=== PATIENT | male | born 1975 | race American Indian/Alaskan Native ===

== ENCOUNTER 2017-12-05 17:10 | Emergency (ER) | payer MEDICAID ==
[2017-12-05 18:37] VITALS: TEMP 97.6
--- NOTE | 2017-12-05 18:41 | ED PDOC ---
Arrival/HPI - General Chief Complaint: Headache Time Seen by Provider: 12/05/17 18:32 Historian: Patient - History of Present Illness Narrative History of Present Illness (Text): 12/05/17 18:38 Patient is a 42 yo male, past medical history of hypertension, currently not taking meds, presents to the Emergency Department complaining of GRADUAL onset of headache "one week ago" which is predominantly left sided and has been interm ittent for past week. Denies fever. Denies trauma. States he feels "slower" and notes associated erectile dysfunction. Patient DENIES any new medications. Patient denies neck pain. Denies dental pain. Denies facial pain or swelling. Denies cough or fevers or chills. States that headache appears better with exertion and is more noticeable "when I'm relaxed and resting". Patient denies any nasal congestion or sore throat. Past Medical History - Infectious Disease Hx of Infectious Diseases: None - Cardiac Hx Cardiac Disorders: No - Pulmonary Hx Respiratory Disorders: No - Psychiatric Hx Substance Use: Yes (weed) - Anesthesia Hx Anesthesia: No Family/Social History Family/Social History: Unknown Family HX Smoking Status: Never Smoked Hx Alcohol Use: Yes Hx Substance Use: Yes (weed) Allergies/Home Meds Allergies/Adverse Reactions: Allergies No Known Allergies Allergy (Verified 01/16/17 18:59) Home Medications: Home Meds Medication Instructions Recorded Confirmed No Known Home Med 01/16/17 01/16/17 Review of Systems - Review of Systems Constitutional: Fatigue. absent: Fevers Eyes: Vision Changes (reports difficulty reading, denies loss of vision, denies double vision) ENT: Other (occasional left ear pain). absent: Hearing Changes Respiratory: absent: SOB, Cough Cardiovascular: absent: Chest Pain, Palpitations Gastrointestinal: absent: Abdominal Pain Genitourinary Male: Other (reports difficulty sustaining an erection since headache). absent: Dysuria, Frequency Musculoskeletal: absent: Back Pain, Neck Pain Neurological: Headache, Gait Changes. absent: Speech Changes, Facial Droop, Seizure Endocrine: absent: Polyuria Hemo/Lymphatic: absent: Easy Bleeding Psychiatric: absent: Depression, Suicidal Ideation Physical Exam - Physical Exam Narrative Physical Exam (Text): 12/05/17 18:32 Head: Atraumatic. Normocephalic. Eyes: PERRL. EOMI. Conjunctivae are not pale. ENT: Mucous membranes are moist and intact. Oropharynx is clear and symmetric. Neck: Supple. Full ROM. No JVD. No lymphadenopathy. Cardiovascular: Regular rate. Regular rhythm. No murmurs, rubs, or gallops. Distal pulses are 2+ and symmetric. Pulmonary/Chest: No evidence of respiratory distress. Clear to auscultation bilaterally. No wheezing, rales or rhonchi. Abdominal: Soft and non-distended. There is no tenderness. No rebound, guarding, or rigidity. No organomegaly. Good bowel sounds. Back: No CVA tenderness. Extremities: No edema. No cyanosis. No clubbing. Full range of motion in all extremities. No calf tenderness. Skin: Skin is warm and dry. No petechiae. No purpura. Neurological: Alert, awake, and oriented to person, place, time, and situation. Normal speech. Psychiatric: Good eye contact. Normal interaction, affect, and behavior. Vital Signs Reviewed: Yes Vital Signs Temp Pulse Resp BP Pulse Ox 12/05/17 18:00 97.6 F 86 17 128/100 H 98 12/05/17 17:32 98.3 F 74 18 148/91 H 99 Temperature: Afebrile Blood Pressure: Hypertensive Appearance: Positive for: Non-Toxic Pain Distress: Mild Mental Status: Positive for: Alert and Oriented X 3 Medical Decision Making ED Course and Treatment: 12/05/17 20:43 Patient currently with no fever, no history of trauma. He has no facial droop or cranial nerve deficits. Currently visual acuity and wan intact. Steady gait. Denies new medications. Not "thunderclap" headache, not worse of life. Blood pressure improved. Given intermittent persistent headache, ct ordered. CT pending at this time. Patient updated at 2041. He is laying comfortably on stretcher. 12/05/17 21:24 CT pending. Patient endorsed to Dr. Leung for follow-up of ct, re-exam, dispo. - RAD Interpretation Radiology Orders: 12/05/17 18:32 HEAD W/O CONTRAST [CT] Stat Disposition/Present on Arrival - Present on Arrival Any Indicators Present on Arrival: No History of DVT/PE: No History of Uncontrolled Diabetes: No Urinary Catheter: No History of Decub. Ulcer: No History Surgical Site Infection Following: None - Disposition Have Diagnosis and Disposition been Completed?: Yes Diagnosis: Headache Disposition Time: 21:25 Patient Plan: Observation Patient Problems: Current Active Problems Problem Status Onset Headache Acute Condition: FAIR Forms: [employer] (Maltese)
[2017-12-05 18:59] LABS: BASO # 0.03 K/mm3 (0.0-2.0); BASO % 0.6 % (0.0-3.0); EOS # 0.2 (0.0-0.7); EOS % 3.6 % (1.5-5.0); GRAN # 2.51 (1.4-6.5); GRAN % 52.7 % (50.0-68.0); LYMPH # 1.7 (1.2-3.4); LYMPH % 35.3 % (22.0-35.0); MEAN CELL VOLUME 86.8 fl (80.0-105.0); MEAN CORPUSCULAR HEMOGLOBIN 30.6 pg (25.0-35.0); MEAN CORPUSCULAR HGB CONC 35.3 g/dl (31.0-37.0); MEAN PLATELET VOLUME 9.9 fl (7.0-11.0); MONO # 0.4 (0.1-0.6); MONO % 7.8 % (1.0-6.0); RBC 5.55 10^6/uL (3.5-6.1); RED CELL DISTRIBUTION WIDTH 14.5 % (11.5-14.5); WHITE BLOOD COUNT 4.8 10^3/uL (4.5-11.0)
[2017-12-05 19:06] LABS: INR 1.1; PROTHROMBIN TIME 12.6 SECONDS (9.4-12.5)
[2017-12-05 19:13] LABS: ALB/GLOB RATIO 1.2 (1.1-1.8); ALBUMIN 4.7 g/dL (3.0-4.8); ALT/SGPT 32 U/L (7-56); AST/SGOT 27 U/L (17-59); BLOOD UREA NITROGEN 18 mg/dL (7-21); CALCIUM 9.3 mg/dL (8.4-10.5); GFR NON-AFRICAN AMERICAN > 60
--- NOTE | 2017-12-05 21:32 | ED PDOC ---
Physical Exam Vital Signs Reviewed: Yes Vital Signs Temp Pulse Resp BP Pulse Ox 12/05/17 18:00 97.6 F 86 17 128/100 H 98 12/05/17 17:32 98.3 F 74 18 148/91 H 99 Temperature: Afebrile Blood Pressure: Hypertensive Pulse: Regular Respiratory Rate: Normal Appearance: Positive for: Well-Appearing, Non-Toxic, Comfortable Pain Distress: None Mental Status: Positive for: Alert and Oriented X 3 Finger Stick Blood Glucose: 124 Medical Decision Making ED Course and Treatment: 12/05/17 21:32 Case endorsed to me by Dr. Kika Ruiz pending CT of the head. History of present illness noted. 12/06/17 00:06 CT Temporal Bones reviewed by radiologist, shows: Normal temporal bones. CT Head reviewed by radiologist, shows: Sinusitis. No acute intracranial abnormality. - Lab Interpretations Lab Results: 12/05/17 18:52 12/05/17 18:52 Lab Results 12/05/17 18:52: POC Glucose (mg/dL) 124 H 12/05/17 18:52: Alcohol, Quantitative < 10 12/05/17 18:52: Sodium 140, Potassium 3.6, Chloride 105, Carbon Dioxide 24, Anion Gap 15, BUN 18, Creatinine 1.0, Est GFR ( Amer) > 60, Est GFR (Non- Af Amer) > 60, Random Glucose 126 H, Calcium 9.3, Magnesium 2.2, Total Bilirubin 1.1, AST 27, ALT 32, Alkaline Phosphatase 85, Total Protein 8.7 H, Albumin 4.7, Globulin 4.0, Albumin/Globulin Ratio 1.2 12/05/17 18:52: PT 12.6 H, INR 1.10, APTT 33.0 12/05/17 18:52: WBC 4.8, RBC 5.55, Hgb 17.0, Hct 48.2, MCV 86.8, MCH 30.6, MCHC 35.3, RDW 14.5, Plt Count 219, MPV 9.9, Gran % 52.7, Lymph % (Auto) 35.3 H, Morrison % (Auto) 7.8 H, Eos % (Auto) 3.6, Baso % (Auto) 0.6, Gran # 2.51, Lymph # (Auto) 1.7, Morrison # (Auto) 0.4, Eos # (Auto) 0.2, Baso # (Auto) 0.03 - RAD Interpretation Radiology Orders: 12/05/17 18:32 HEAD W/O CONTRAST [CT] Stat 12/05/17 19:02 IAC W/O CONTRAST [CT] Stat Disposition/Present on Arrival - Present on Arrival Any Indicators Present on Arrival: No History of DVT/PE: No History of Uncontrolled Diabetes: No Urinary Catheter: No History of Decub. Ulcer: No History Surgical Site Infection Following: None - Disposition Have Diagnosis and Disposition been Completed?: Yes Diagnosis: Headache, Sinusitis Disposition: HOME/ ROUTINE Disposition Time: 00:10 Patient Plan: Discharge Patient Problems: Current Active Problems Problem Status Onset Headache Acute Condition: FAIR Discharge Instructions (ExitCare): Sinus Headache (DC), Sinusitis, Adult (DC) Additional Instructions: Take meds as prescribed/follow up with your doctor next few days Prescriptions: Amoxicillin/Clavulanate [Augmentin 875 MG-125 MG] 1 tab PO BID #20 tab Acetaminophen/Butalbital/Caf [Fioricet] 1 tab PO Q6 PRN #12 tab PRN Reason: Headache Forms: [employer] (Mozambican), WORK NOTE
[2017-12-06] MEDS ORDERED: Amoxicillin-Clav 875-125 mg Tab PO STA (00:08)
[2017-12-06 00:29] VITALS: BP 139/86; PULSE 81; RESP 17; O2SAT 99
--- NOTE | 2017-12-06 09:15 | CT ---
Date of service: 12/05/2017 PROCEDURE: CT HEAD WITHOUT CONTRAST. HISTORY: headache, fatigue, left sided COMPARISON: None available. TECHNIQUE: Axial computed tomography images were obtained through the head/brain without intravenous contrast. Radiation dose: Total exam DLP = 922.93 mGy-cm. This CT exam was performed using one or more of the following dose reduction techniques: Automated exposure control, adjustment of the mA and/or kV according to patient size, and/or use of iterative reconstruction technique. FINDINGS: HEMORRHAGE: No intracranial hemorrhage. BRAIN: No mass effect or edema. No atrophy or chronic microvascular ischemic changes. VENTRICLES: Unremarkable. No hydrocephalus. CALVARIUM: Unremarkable. PARANASAL SINUSES: Unremarkable as visualized. No significant inflammatory changes. MASTOID AIR CELLS: Unremarkable as visualized. No inflammatory changes. OTHER FINDINGS: None. IMPRESSION: Normal CT of the Head.
--- NOTE | 2017-12-06 11:02 | CARD ---
APPROVED REPORT Date of service: 12/05/2017 EKG Measurement Heart [id number] <Conclusion> Sinus bradycardia Incomplete right bundle branch block LVH STTW changes c/w ischemia
--- NOTE | 2017-12-06 14:54 | CT ---
Date of service: 12/05/2017 PROCEDURE: CT OF THE TEMPORAL BONES WITHOUT CONTRAST HISTORY: headache, left ear pain COMPARISON: None available. TECHNIQUE: High resolution axial images of the temporal bones were obtained. Coronal and sagittal reformats were generated. Radiation dose: Total exam DLP = 791.72 mGy-cm. This CT exam was performed using one or more of the following dose reduction techniques: Automated exposure control, adjustment of the mA and/or kV according to patient size, and/or use of iterative reconstruction technique. FINDINGS: RIGHT TEMPORAL BONE: RIGHT MIDDLE EAR: Normal. RIGHT INNER EAR: Cochlea: Normal. Semicircular canals: Normal. RIGHT MASTOID AIR CELLS: Normal. RIGHT INTERNAL AUDITORY CANAL: Normal. RIGHT EXTERNAL AUDITORY CANAL: Normal. RIGHT VESTIBULAR AND COCHLEAR AQUEDUCT: Normal. OTHER FINDINGS: None. LEFT TEMPORAL BONE: LEFT MIDDLE EAR: Normal. LEFT INNER EAR: Cochlea: Normal. Semicircular canals: Normal. LEFT MASTOID AIR CELLS: Normal. LEFT INTERNAL AUDITORY CANAL: Normal. LEFT EXTERNAL AUDITORY CANAL: Normal. LEFT VESTIBULAR AND COCHLEAR AQUEDUCTS: Normal. OTHER FINDINGS: None. IMPRESSION: Unremarkable non contrast enhanced CT of the temporal bones. A preliminary report was provided by [employer].
== END 2017-12-06 00:26 | disposition home or self-care (01) ==
LOC: ED 17:10
DX: J32.9 Chronic sinusitis, unspecified (principal); R51 Headache; I10 Essential (primary) hypertension; F19.10 Other psychoactive substance abuse, uncomplicated; Z91.19 Patient's noncompliance with other medical treatment and regimen

== ENCOUNTER 2018-04-12 11:28 | Emergency (ER) | payer MEDICAID ==
[2018-04-12 11:39] VITALS: BP 136/90; PULSE 82; RESP 18; TEMP 98.3; O2SAT 98
[2018-04-12] MEDS ORDERED: TDAP Vaccine 0.5 mL Syr IM ONE (11:59)
[2018-04-12] MEDS ORDERED: Tobramycin 0.3% OPHT SOLN OU STA (12:00)
--- NOTE | 2018-04-12 12:04 | ED PDOC ---
Arrival/HPI - General Chief Complaint: Eye Problem Time Seen by Provider: 04/12/18 11:39 Historian: Patient - History of Present Illness Narrative History of Present Illness (Text): 04/12/18 12:01 42yo male with no pmhx who present with complaint of right eye pain and FB sensation since last night. Patient states he started having FB sensation last night while at work. States he is not sure if anything went into the eye. States pain started this morning. Denies visual changes, dizziness, any other complaint. Past Medical History - Provider Review Nursing Documentation Reviewed: Yes - Infectious Disease Hx of Infectious Diseases: None - Cardiac Hx Cardiac Disorders: No - Pulmonary Hx Respiratory Disorders: No - Psychiatric Hx Substance Use: Yes (weed) - Anesthesia Hx Anesthesia: No Family/Social History - Physician Review Nursing Documentation Reviewed: Yes Family/Social History: Unknown Family HX Smoking Status: Never Smoked Hx Alcohol Use: Yes Hx Substance Use: Yes (weed) Allergies/Home Meds Allergies/Adverse Reactions: Allergies No Known Allergies Allergy (Verified 01/16/17 18:59) Review of Systems - Physician Review All systems were reviewed & negative as marked: Yes - Review of Systems Constitutional: Normal Eyes: Eye Pain (Right eye) ENT: Normal Respiratory: Normal Cardiovascular: Normal Gastrointestinal: Normal Genitourinary Male: Normal Musculoskeletal: Normal Skin: Normal Neurological: Normal Endocrine: Normal Hemo/Lymphatic: Normal Psychiatric: Normal Physical Exam Vital Signs Reviewed: Yes Vital Signs Temp Pulse Resp BP Pulse Ox 04/12/18 11:36 98.3 F 82 18 136/90 98 Temperature: Afebrile Blood Pressure: Normal Pulse: Regular Respiratory Rate: Normal Appearance: Positive for: Well-Appearing, Non-Toxic, Comfortable Pain Distress: None Mental Status: Positive for: Alert and Oriented X 3 - Systems Exam Head: Present: Atraumatic, Normocephalic Pupils: Present: PERRL Extroacular Muscles: Present: EOMI Conjunctiva: Present: Other (Pinpoint florescin uptake noted at 6oclock position of the cornea) Mouth: Present: Moist Mucous Membranes Neck: Present: Normal Range of Motion Respiratory/Chest: Present: Clear to Auscultation, Good Air Exchange. No: Respiratory Distress, Accessory Muscle Use Cardiovascular: Present: Regular Rate and Rhythm, Normal S1, S2. No: Murmurs Abdomen: No: Tenderness, Distention, Peritoneal Signs Back: Present: Normal Inspection Upper Extremity: Present: Normal Inspection. No: Cyanosis, Edema Lower Extremity: Present: Normal Inspection. No: Edema Neurological: Present: GCS=15, CN II-XII Intact, Speech Normal Skin: Present: Warm, Dry, Normal Color. No: Rashes Psychiatric: Present: Alert, Oriented x 3, Normal Insight, Normal Concentration Medical Decision Making ED Course and Treatment: 04/12/18 17:53 PT presented to ED for stated history. He had a pinpoint florescin uptake on the right cornea. His TD vickyer was updated Tobramycin opth Pt was advised his Tobra as directed and referred to a Opthalmologist Disposition/Present on Arrival - Present on Arrival Any Indicators Present on Arrival: No History of DVT/PE: No History of Uncontrolled Diabetes: No Urinary Catheter: No History of Decub. Ulcer: No History Surgical Site Infection Following: None - Disposition Have Diagnosis and Disposition been Completed?: Yes Diagnosis: Corneal abrasion Disposition: HOME/ ROUTINE Disposition Time: 12:05 Patient Plan: Discharge Condition: STABLE Discharge Instructions (ExitCare): Corneal Abrasion (DC) Additional Instructions: Follow up with your Doctor/Orthopedist Use Tobramycin as directed Return to ED for any new or worsening symptoms Referrals: PCP,NO [Primary Care Provider] - Follow up with primary Nico Mcgovern MD [Staff Provider] - Follow up with primary Forms: [employer] (Spanish), WORK NOTE
== END 2018-04-12 12:31 | disposition home or self-care (01) ==
LOC: ED 11:28
DX: S05.01XA Injury of conjunctiva and corneal abrasion without foreign body, right eye, initial encounter (principal); X58.XXXA Exposure to other specified factors, initial encounter; Y92.89 Other specified places as the place of occurrence of the external cause; Y99.0 Civilian activity done for income or pay; Z23 Encounter for immunization